=== PATIENT | female | born 1980 | race Caucasian/White ===

== ENCOUNTER 2022-06-13 17:50 | Emergency (ER) | payer OTHER ==
[2022-06-13 19:47] LABS: HEMOGLOBIN 12.5 gm/dl (12.3-15.3); RED BLOOD COUNT 3.9 M/UL (4.00-5.10); WHITE BLOOD COUNT 12.2 K/UL (4.5-11.0)
[2022-06-13 20:07] LABS: BUN/CREATININE RATIO 10 (0-10)
[2022-06-14] MEDS ORDERED: MORGIDOX100 MG PO (01:07)
[2022-06-14] MEDS ORDERED: TORADOL 10 MG T10 MG PO (01:10)
[2022-06-14] MEDS ORDERED: ZOFRAN ODT 4 MG4 MG SL (01:11)
== END 2022-06-14 01:40 | disposition home or self-care (01) ==
LOC: ER1 17:50
PROVIDERS: Emergency Medicine
DX: N28.89 Other specified disorders of kidney and ureter (principal)
CPT/HCPCS: 80053; 81001; 83690; 84703; 85025; 96372; 96374; 99284; J0696; J1885; Q9967